=== PATIENT | female | born 1970 | race Caucasian/White ===

== ENCOUNTER 2017-10-27 13:10 | Emergency (ER) | payer OTHER ==
[~2017-10-27] VITALS: Ht 162.6 cm; Wt 77.0 kg
[~2017-10-27 13:10] MED LIST: ALBU8I INH; CYCL1PAK PO; NORC10TA2 PO; RIVA10 PO; Z.0.WALKERFRONT
[2017-10-27 13:18] VITALS: BP 139/78; PULSE 72; RESP 18; TEMP 98.4; O2SAT 97
[2017-10-27] MEDS ORDERED: KETOROLAC TROMETHAMINE 30 MG/ML (IVP) VIAL IV PUSH ONE (13:45)
[2017-10-27] MEDS ORDERED: SODIUM CHLORIDE 0.9% FLUSH 10 ML FLUSH IV FLUSH PRN (13:45)
--- NOTE | 2017-10-27 13:49 | PD ---
HPI Chief Complaint: Flank/Kidney Pain Time Seen by Provider: 13:45 Travel History International Travel<30 days: No Contact w/Intl Traveler<30days: No Traveled to known affect area: No History of Present Illness HPI 47-year-old female patient with history of previous history of cholecystectomy, ovarian cyst, presents to the ER today because she started having right flank pain starting last night, and is radiating towards the front, currently a constant 7 out of 10. She does not know of any exacerbating alleviating factors. She started urinating blood today. She denies any nausea, vomiting, diarrhea, or other symptoms. Modifying Factors: None Associated Signs & Symptoms: Right flank pain, radiating to the front, blood in the urine Risk Factors: None PFSH Past Medical History Arthritis: Yes (L HIP ARTHRITIS) Cancer: No Cardiovascular Problems: Yes (MURMUR) Diabetes: No Endocrine: No Genitourinary: No Hepatitis: No Hiatal Hernia: No Immune Disorder: No Musculoskeletal: No Neurologic: No Psychiatric: No Reproductive: No Respiratory: Yes (ASTHMA) Immunizations Current: Yes Thyroid Disease: No ?: Not : 4 Para: 4 Miscarriage: 0 : 0 Past Surgical History Abdominal Surgery: Yes AICD: No Body Medical Devices: NONE Cardiac Surgery: No Cholecystectomy: Yes (1995) Ear Surgery: No Endocrine Surgery: No Eye Surgery: No Genitourinary Surgery: No Gynecologic Surgery: Yes (OVARIAN CYST,) Joint Replacement: Yes (b hip) Oral Surgery: Yes (TEETH PULLED) Pacemaker: No Thoracic Surgery: No Other Surgery: Yes (RUPTURED CYST ) Social History Alcohol Use: Yes (OCCASSIONAL) Tobacco Use: Yes (occas) Substance Use: No Allergies-Medications (Allergen,Severity, Reaction): Coded Allergies: ciprofloxacin (Unverified Allergy, Severe, Headache, HIVES, 10/27/17) diatrizoate meglumine (Unverified Allergy, Severe, Hives, 10/27/17) gadobenic acid (Unverified Allergy, Severe, Hives, 10/27/17) gadodiamide (Unverified Allergy, Severe, Hives, 10/27/17) gadoteridol (Unverified Allergy, Severe, Hives, 10/27/17) iodixanol (Unverified Allergy, Severe, Hives, 10/27/17) iohexol (Unverified Allergy, Severe, Hives, 10/27/17) metronidazole (Unverified Allergy, Severe, Hives, 10/27/17) Iodinated Contrast- Oral and IV Dye (Verified Allergy, Intermediate, hives , 10/27/17) Uncoded Allergies: BORDER GAUZE (Adverse Reaction, Severe, RASH, 11/30/15) Reported Meds & Prescriptions Reported Meds & Active Scripts Active No Active Prescriptions or Reported Medications Review of Systems Except as stated in HPI: all other systems reviewed are Neg Physical Exam Narrative GENERAL: Well-developed middle-age female patient currently in moderate distress. Awake and oriented 3. SKIN: Focused skin assessment warm/dry. HEAD: Atraumatic. Normocephalic. EYES: Pupils equal and round. No scleral icterus. No injection or drainage. ENT: No nasal bleeding or discharge. Mucous membranes pink and moist. NECK: Trachea midline. No JVD. CARDIOVASCULAR: Regular rate and rhythm. No murmur appreciated. RESPIRATORY: No accessory muscle use. Clear to auscultation. Breath sounds equal bilaterally. GASTROINTESTINAL: Abdomen soft, non-tender, nondistended. Hepatic and splenic margins not palpable. MUSCULOSKELETAL: No obvious deformities. No clubbing. No cyanosis. No edema. BACK: Mild right CVA tenderness. No rash. No point tenderness on palpation of the spine. NEUROLOGICAL: Awake and alert. No obvious cranial nerve deficits. Motor grossly within normal limits. Normal speech. PSYCHIATRIC: Appropriate mood and affect; insight and judgment normal. Data Data Last Documented VS Vital Signs Date Time Temp Pulse Resp B/P (MAP) Pulse Ox O2 Delivery O2 Flow Rate FiO2 10/27/17:18 98.4 72 18 139/78 (98) 97 Orders Orders Complete Blood Count With Diff (10/27/17 13:32) Comprehensive Metabolic Panel (10/27/17 13:32) Urinalysis - C+S If Indicated (10/27/17 13:32) Iv Access Insert/Monitor (10/27/17 13:32) Ecg Monitoring (10/27/17 13:32) Oximetry (10/27/17 13:32) Sodium Chloride 0.9% Flush (Ns Flush) (10/27/17 13:45) Ketorolac Inj (Toradol Inj) (10/27/17 13:45) Ct Abd/Pel W/O Iv Contrast (10/27/17 13:45) Ed Urine Pregnancytest Poc (10/27/17 13:45) Urine Culture (10/27/17 13:45) Ed Discharge Order (10/27/17 16:33) Labs Laboratory Tests Test 10/27/17 13:45 White Blood Count 8.7 TH/MM3 Red Blood Count 4.22 MIL/MM3 Hemoglobin 13.4 GM/DL Hematocrit 39.7 % Mean Corpuscular Volume 93.9 FL Mean Corpuscular Hemoglobin 31.7 PG Mean Corpuscular Hemoglobin Concent 33.8 % Red Cell Distribution Width 13.5 % Platelet Count 261 TH/MM3 Mean Platelet Volume 6.8 FL Neutrophils (%) (Auto) 61.0 % Lymphocytes (%) (Auto) 27.7 % Monocytes (%) (Auto) 8.1 % Eosinophils (%) (Auto) 2.7 % Basophils (%) (Auto) 0.5 % Neutrophils # (Auto) 5.3 TH/MM3 Lymphocytes # (Auto) 2.4 TH/MM3 Monocytes # (Auto) 0.7 TH/MM3 Eosinophils # (Auto) 0.2 TH/MM3 Basophils # (Auto) 0.0 TH/MM3 CBC Comment DIFF FINAL Differential Comment Urine Color YELLOW Urine Turbidity HAZY Urine pH 5.0 Urine Specific [place] 1.017 Urine Protein 100 mg/dL Urine Glucose (UA) NEG mg/dL Urine Ketones NEG mg/dL Urine Occult Blood LARGE Urine Nitrite NEG Urine Bilirubin NEG Urine Urobilinogen LESS THAN 2 mg/dL Urine Leukocyte Esterase NEG Urine RBC /hpf Urine WBC 17 /hpf Urine Squamous Epithelial Cells 3 /hpf Urine Bacteria OCC /hpf Urine Mucus MOD /lpf Urine Yeast (Budding) MANY Microscopic Urinalysis Comment CULTURE INDICATED Blood Urea Nitrogen 13 MG/DL Creatinine 0.58 MG/DL Random Glucose 85 MG/DL Total Protein 7.1 GM/DL Albumin 3.7 GM/DL Calcium Level 8.7 MG/DL Alkaline Phosphatase 68 U/L Aspartate Amino Transf (AST/SGOT) 15 U/L Alanine Aminotransferase (ALT/SGPT) 45 U/L Total Bilirubin 0.3 MG/DL Sodium Level 141 MEQ/L Potassium Level 3.8 MEQ/L Chloride Level 109 MEQ/L Carbon Dioxide Level 24.3 MEQ/L Anion Gap 8 MEQ/L Estimat Glomerular Filtration Rate 110 ML/MIN MDM Medical Decision Making Medical Screen Exam Complete: Yes Emergency Medical Condition: Yes Medical Record Reviewed: Yes Interpretation(s) Laboratory Tests Test 10/27/17 13:45 Mean Platelet Volume 6.8 FL (7.0-11.0) Monocytes (%) (Auto) 8.1 % (0.0-8.0) Urine Turbidity HAZY (CLEAR) Urine Protein 100 mg/dL (NEG-TRACE) Urine Occult Blood LARGE (NEG) Urine WBC 17 /hpf (0-5) Urine Bacteria OCC /hpf (NONE) Urine Mucus MOD /lpf (OCC) Urine Yeast (Budding) MANY (NONE) Chloride Level 109 MEQ/L (98-107) Last 24 hours Impressions Abdomen/Pelvis CT 10/27/17 1345 Signed Impressions: CONCLUSION: 1. There is a 7 mm x 5 mm calculus at the right UPJ with right-sided obstructi ve uropathy and mild hydronephrosis 2. Diffuse fatty liver enlarged to at least 22 cm. Differential Diagnosis Right flank pain, hematuria: UTI/pyelonephritis versus renal colic versus dehydration versus hepatic disease Narrative Course CAT scan shows a 7 mm x 5 mm stone at the right UPJ, causing hydronephrosis, and the case was discussed with Dr. Aceves of urology who states that the patient can follow-up in his clinic on Sunday for lithotripsy. Call for appointment on Sunday. At this point, she does have some white blood cells in her urine but no signs of significant infection on lab work and I have discussed this with urology as well and he states that she does not need antibiotics at this time. She needs pain control however. Return for any worsening in pain or new symptoms as needed. The plan has been discussed with her and she states understanding. Diagnosis Primary Impression: Renal colic on right side Referrals: Thomas Kang MD 2 days Med/Other Pt SpecificInfo: Prescription(s) given Scripts Oxycodone-Acetaminophen (Percocet) 5-325 mg Tab 1-2 TAB PO Q6H Y for PAIN, #12 TAB 0 Refills Prov: Ish Rubio MD 10/27/17 Ibuprofen (Ibuprofen) 600 Mg Tab 600 MG PO Q6H Y for Pain/Inflammation, #20 TAB 0 Refills Prov: Ish Rubio MD 10/27/17 Disposition: 01 DISCHARGE HOME Condition: Stable Ish Rubio MD Oct 27, 2017 13:49
[2017-10-27 14:09] LABS: AUTOMATED NEUTROPHIL # 5.3 TH/MM3 (1.8-7.7); BASOPHIL % 0.5 % (0.0-2.0); EOSINOPHIL # 0.2 TH/MM3 (0-0.4); EOSINOPHIL % 2.7 % (0.0-4.0); HEMATOCRIT 39.7 % (35.0-46.0); HEMOGLOBIN 13.4 GM/DL (11.6-15.3); LYMPH % 27.7 % (9.0-44.0); LYMPHOCYTE # 2.4 TH/MM3 (1.0-4.8); MEAN CELL VOLUME 93.9 FL (80.0-100.0); MEAN CORPUSCULAR HEMOGLOBIN 31.7 PG (27.0-34.0); MEAN CORPUSCULAR HGB CONC 33.8 % (32.0-36.0); MEAN PLATELET VOLUME 6.8 FL (7.0-11.0); MONO % 8.1 % (0.0-8.0); MONOCYTE # 0.7 TH/MM3 (0-0.9); PLATELET COUNT 261 TH/MM3 (150-450); RED BLOOD COUNT 4.22 MIL/MM3 (4.00-5.30); RED CELL DISTRIBUTION WIDTH 13.5 % (11.6-17.2); WHITE BLOOD COUNT 8.7 TH/MM3 (4.0-11.0)
[2017-10-27 14:29] LABS: ALBUMIN 3.7 GM/DL (3.4-5.0); ALT (GPT) 45 U/L (10-53); AST (GOT) 15 U/L (15-37); BICARBONATE 24.3 MEQ/L (21.0-32.0); BLOOD UREA NITROGEN 13 MG/DL (7-18); CALCIUM 8.7 MG/DL (8.5-10.1); CHLORIDE 109 MEQ/L (98-107); CREATININE 0.58 MG/DL (0.50-1.00); GLOMERULAR FILTRATION RATE 110 ML/MIN (>89); GLUCOSE,RANDOM 85 MG/DL (74-106); SODIUM (NA) 141 MEQ/L (136-145)
[2017-10-27 14:31] LABS: ALKALINE PHOSPHATASE 68 U/L (45-117); TOTAL BILIRUBIN ADULT 0.3 MG/DL (0.2-1.0); TOTAL PROTEIN 7.1 GM/DL (6.4-8.2)
[2017-10-27 14:33] LABS: BACTERIA, URINE OCC /hpf; BILIRUBIN, URINE NEG (NEG); BLOOD, URINE LARGE (NEG); GLUCOSE,URINE NEG (NEG); KETONE, URINE NEG (NEG); MUCUS URINE MOD /lpf (OCC); NITRITE,URINE NEG (NEG); SQUAMOUS EPITHELIAL CELL URINE 3 /hpf (0-5); URINE COLOR YELLOW (YELLW/STRAW); URINE LEUKOCYTE ESTERASE NEG (NEG)
--- NOTE | 2017-10-27 16:10 | RADRPT ---
EXAM DATE: 10/27/2017 3:35 PM EDT AGE/SEX: 47 years / Female INDICATIONS: Right flank pain, gross hematuria. CLINICAL DATA: This is the patient's initial encounter. Patient reports that signs and symptoms have been present for 1 day and indicates a pain score of 6/10. MEDICAL/SURGICAL HISTORY: Hypertension. Cholecystectomy. RADIATION DOSE: 8.42 CTDI (mGy) COMPARISON: [facility] – [place], CT ABDOMEN & PELVIS W/O CONTRAST, 04/15/2012. . TECHNIQUE: Multiple contiguous axial images were obtained through the abdomen. Images were obtained using multiple row detector helical technique. Using dose reduction techniques, radiation dose was ke pt as low as reasonably achievable to obtain optimal diagnostic quality images. FINDINGS: There is a 7 mm x 5 mm calculus at the right ureteropelvic junction with right-sided obstructive urop athy and mild hydronephrosis. There is a cluster of calculi in the upper pole left kidney measuring u p to 15 mm in diameter that are nonobstructing. Fatty liver. Spleen, adrenals and pancreas are unremarkable. Previous bilateral hip replacement. No free fluid or free air. No bowel obstruction. CONCLUSION: 1. There is a 7 mm x 5 mm calculus at the right UPJ with right-sided obstructive uropathy and mild h ydronephrosis 2. Diffuse fatty liver enlarged to at least 22 cm. Electronically signed by: Ariel Owens MD 10/27/2017 4:09 PM EDT
[2017-10-27] MEDS ORDERED: PERC5TAB12 PO (16:36)
[2017-10-27] MEDS ORDERED: IBUP-232 PO (16:36)
== END 2017-10-27 16:59 | disposition home or self-care (01) ==
LOC: NEPE 13:10
DX: N23 Unspecified renal colic (principal); N13.30 Unspecified hydronephrosis; K76.0 Fatty (change of) liver, not elsewhere classified; M16.12 Unilateral primary osteoarthritis, left hip; J45.909 Unspecified asthma, uncomplicated; Z72.0 Tobacco use; Z88.1 Allergy status to other antibiotic agents; Z88.8 Allergy status to other drugs, medicaments and biological substances
CPT/HCPCS: 74176; 80053; 81001; 84703; 85025; 87086; 96374; 99284; J1885

== ENCOUNTER → 2017-10-31 | Day surgery (SDC) | payer OTHER ==
[~2017-10-31] VITALS: Ht 162.6 cm; Wt 80.6 kg
[~2017-10-31] MED LIST changes: +*diphenhydrAMINE HCL 50 MG/ML VIAL PERIprocedural Use ONLY ONE; +*morphine SULFATE 8 MG/ML PERIprocedure ONLY ONE; +ACETAMINOPHEN 1000 MG/100 ML 100 ML IV ONE; -ALBU8I INH; +APREPITANT 40 MG CAP ONE; -CYCL1PAK PO; +DEXAMETHASONE SOD PHOS 4 MG/ML VIAL IV ONE; +DO NOT ADM ANY ANTICOAGULANT DRUGS PRN; +FUROSEMIDE 40 MG/4 ML VIAL ONE; +IBUP-232 PO; +IOHEXOL 350 MG/ML 50 ML BTL (for RAD DIAG) OTHER ONE; +LACTATED RINGER'S 1000 ML IV PRN; +LIDOCAINE HCL 1% PF 5 ML SYRINGE OTHER ONE; +METOPROLOL TARTRATE 25 MG TAB PO PRN; +MIDAZOLAM HCL 2 MG/2 ML VIAL ONE; +MORPHINE SULFATE 4 MG/ML INJ ONE; -NORC10TA2 PO; +ONDANSETRON HCL 4 MG/2 ML VIAL IV ONE; +PERC5TAB12 PO; +PHENYLEPH/NS 1000 MCG/10 ML SYR IV ONE; +PROPOFOL 200 MG/20 ML AMP IV ONE; -RIVA10 PO; +SODIUM CHLORID 0.9% 500 ML IV PRN; +SODIUM CHLORIDE 0.9% INJ 100 ML ONE; -Z.0.WALKERFRONT; +ceFAZolin INJ 1,000 MG VIAL ONE; +ePHEDrine/NS 25 MG/5 ML SYRINGE IV ONE; +oxyCODONE/ACETAMINOPHEN 5 MG/325 MG TAB ONE
--- NOTE | 2017-10-31 13:22 | EKG ---
Date Performed: 10/31/2017 Time Performed: 13:00:01 PTAGE: 47 years EKG: Sinus rhythm POSSIBLE LEFT ATRIAL ENLARGEMENT INCOMPLETE RIGHT BUNDLE BRANCH BLOCK BORDERLINE ECG PREVIOUS TRACING : 10/27/2015 06.30 DOCTOR: Alejo Moise Interpretating Date/Time 10/31/2017 13:22:07
[2017-10-31 13:50] LABS: BASOPHIL % 0.5 % (0.0-2.0); EOSINOPHIL # 0.2 TH/MM3 (0-0.4); EOSINOPHIL % 3.3 % (0.0-4.0); HEMATOCRIT 39.5 % (35.0-46.0); HEMOGLOBIN 13.4 GM/DL (11.6-15.3); LYMPH % 30.3 % (9.0-44.0); LYMPHOCYTE # 2.1 TH/MM3 (1.0-4.8); MEAN CELL VOLUME 93.9 FL (80.0-100.0); MEAN CORPUSCULAR HEMOGLOBIN 31.9 PG (27.0-34.0); MONO % 7.5 % (0.0-8.0); MONOCYTE # 0.5 TH/MM3 (0-0.9); NEUT % 58.4 % (16.0-70.0); PLATELET COUNT 255 TH/MM3 (150-450); RED BLOOD COUNT 4.21 MIL/MM3 (4.00-5.30); RED CELL DISTRIBUTION WIDTH 13.4 % (11.6-17.2); WHITE BLOOD COUNT 6.9 TH/MM3 (4.0-11.0)
--- NOTE | 2017-10-31 14:14 | RADRPT ---
EXAM DATE: 10/31/2017 2:01 PM EDT AGE/SEX: 47 years / Female INDICATIONS: Pre op lithotripsy. CLINICAL DATA: This is the patient's initial encounter. Patient reports that signs and symptoms have been present for 1 day and indicates a pain score of 5/10. MEDICAL/SURGICAL HISTORY: None. None. COMPARISON: [facility] – [place], CT ABDOMEN & PELVIS W/O CONTRAST, 10/27/2017. . FINDINGS: The abdominal bowel gas pattern is normal. Calcifications are seen in the left upper quadrant proje cting over the superior aspect of the left kidney. There is a 0.6 and are calcifications seen to the right at the L4 vertebral body potential in the right proximal ureter. Clips are seen in the right up per quadrant. There is a single clip in the right pelvis. Bilateral hip prostheses are present. CONCLUSION: 6 mm calcification seen over the proximal right ureter region. Left renal stones projecting over the superior left collecting system. Electronically signed by: Rashaun Leija MD 10/31/2017 2:12 PM EDT
--- NOTE | 2017-10-31 17:27 | PD.OP ---
Operative Report Date of Surgery: Oct 31, 2017 Preoperative Diagnosis: Right UPJ stone Postoperative Diagnosis: Same Procedure: Cystoscopy with right retrograde pyelogram and right double-J stent insertion followed by right extracorporeal shockwave lithotripsy Anesthesia: General LMA Surgeon: Naldo Ceja Candlemaker(s): None Resident Surgeon: None Operation and Findings: 47-year-old female with findings of an 8 mm right UPJ stone who elected to undergo cystoscopy with right double-J stent insertion followed by right extracorporeal shockwave lithotripsy. Risk and benefits were discussed preoperatively and the patient was willing to proceed. The patient was brought to the operating room and identified by myself as Angela Cohn. She was placed in dorsal lithotomy position, prepped and draped in usual sterile fashion , received preprocedure antibiotics and general LMA anesthesia was administered. 22 Kisw[place]ili cystoscope was inserted the bladder madison cystoscopy did not reveal any abnormalities. The right ureteral orifice was identified and a 5 Kisw[place]ili opening catheter was inserted into the right ureteral orifice without difficulty. A retrograde pyelogram demonstrated a stone at the area of the right UPJ. A 0.35 sensor wire was then passed through the open-ended catheter and the open-ended catheter was then removed. A 6 Kisw[place]ili 22 cm right double-J stent was placed with a good curl in the kidney and the bladder. The bladder was evacuated and the patient was then placed into the supine position. Under fluoroscopic imaging guidance the stone was located within the right collecting system. ESWL therapy commenced with the patient receiving 2500 shocks with good fragmentation of the stone visualized on fluoroscopy. The patient tolerated the procedure well and was awoken and extubated and transferred recovery room in stable condition. She will follow-up in a few weeks to the office to undergo cystoscopy with right double-J stent removal and to be scheduled for left extracorporeal shockwave lithotripsy for her 1.5 cm left upper pole stone. Naldo Ceja DO Oct 31, 2017 17:27
[2017-10-31 18:50] VITALS: BP 140/83; PULSE 77; RESP 20; TEMP 97.7; O2SAT 96
== END | disposition home or self-care (01) ==
LOC: HSDC 12:35
PROVIDERS: ATTEND Urology
DX: N20.2 Calculus of kidney with calculus of ureter (principal); M16.0 Bilateral primary osteoarthritis of hip; Z96.643 Presence of artificial hip joint, bilateral; Z01.810 Encounter for preprocedural cardiovascular examination; Z01.818 Encounter for other preprocedural examination
CPT/HCPCS: 00910; 50590; 52332; 74018; 74420; 85025; 93005; C1769; C2617; J0131; J0690; J1100; J1200; J1940; J2250; J2270; J2370; J2405; J3010; J7120; J8501; Q9967